=== PATIENT | female | born 1965 | race African-American/Black ===

== ENCOUNTER 2017-04-07 11:27 | Emergency (ER) | payer OTHER ==
[~2017-04-07] VITALS: Ht 160 cm; Wt 82.1 kg
[~2017-04-07 11:27] MED LIST: AMLODIPINE BESY10 MG PO; AMOXICILLIN500 MG PO; ATENOLOL100 MG PO; CYMBALTA30 MG PO; CYMBALTA60 MG PO; DULOXETINE HCL30 MG PO; MOBIC7.5 MG PO; MOTRIN600 MG PO; NORVASC10 MG PO; PERCOCET 5/31 TABLET PO; PHENERGAN-CODE120 ML PO; TENORMIN25 MG PO; TESSALON PERLE100 MG PO; ULTRAM50 MG PO; ZOFRAN ODT4 MG PO
[2017-04-07 12:58] LABS: CHLORIDE 110 mEq/L (99-109); POTASSIUM 3.8 mEq/L (3.7-5.4); SODIUM 145 mEq/L (136-147)
[2017-04-07 12:59] LABS: HEMATOCRIT 41.3 % (36.0-46.0); MCHC 31.5 G/DL (30.0-36.0); MCV 79.6 FL (83-99); MEAN PLAT.VOLUME 11.8 uM^3 (9.5-12.4); PLATELET COUNT 230 K/uL (156-360); RBC DIS.WIDTH-CV 15.9 % (11.8-14.6); RBC DIS.WIDTH-SD 45.3 % (39-53); RED BLOOD COUNT 5.19 M/uL (3.80-5.20); WHITE BLOOD COUNT 6.6 K/uL (4.1-10.2)
[2017-04-07 13:00] LABS: GLUCOSE 85 mg/dL (70-99)
[2017-04-07 13:01] LABS: ANION GAP 12 MEQ/L (2-14)
[2017-04-07 13:04] LABS: GFR ESTIMATE (CALCULATED) > 59 mL/min/; UREA NITROGEN (BUN) 10 mg/dL (9-23)
[2017-04-07 13:10] LABS: TROP-I INTERPRETATION NEGATIVE; TROPONIN-I < 0.01 ng/mL (0.0-0.30)
[2017-04-07 14:40] LABS: TROP-I INTERPRETATION NEGATIVE; TROPONIN-I 0.02 ng/mL (0.0-0.30)
[2017-04-07 15:43] VITALS: BP 129/82
== END 2017-04-07 15:45 | disposition home or self-care (01) ==
LOC: EME 11:27
PROVIDERS: Emergency Medicine
DX: R07.9 Chest pain, unspecified (principal); I10 Essential (primary) hypertension
CPT/HCPCS: 71020; 80048; 84484; 85027; 85379; 93005; 99281; 99285

== ENCOUNTER 2018-01-23 21:41 | Emergency (ER) | payer OTHER ==
[~2018-01-23] VITALS: Ht 160 cm; Wt 86.0 kg
[2018-01-23 21:59] VITALS: BP 139/85
[2018-01-23] MEDS ORDERED: PERCOCET 5/31 TABLET PO (22:52)
== END 2018-01-23 23:06 | disposition home or self-care (01) ==
LOC: EME 21:41
DX: M54.5 Low back pain (principal); M25.562 Pain in left knee; M25.561 Pain in right knee; G89.29 Other chronic pain; Z88.6 Allergy status to analgesic agent; F17.200 Nicotine dependence, unspecified, uncomplicated
CPT/HCPCS: 99281; 99283